=== PATIENT | female | born 1970 | race Caucasian/White ===

== ENCOUNTER 2017-08-20 14:34 | Inpatient (IN) ==
[2017-08-20] MEDS ORDERED: Ketorolac Inj 30 MG/ML (IVP) Vial IV.PUSH ONE (15:19)
[2017-08-20] MEDS ORDERED: Sod Chloride 0.9% Inj 1,000 ML IV.SIG ONE (15:19)
[2017-08-20 15:51] LABS: Baso % (Auto) 0.2 % (0.0-2.0); Eos % (Auto) 0.2 % (0.0-4.0); Hematocrit 38.5 % (35.0-46.0); Hemoglobin 13.1 gm/dL (11.6-15.3); Lymph # (Auto) 0.4 th/mm3 (1.0-4.8); Lymph % (Auto) 3.2 % (9.0-44.0); Mean Corpuscular Hemoglobin 29.2 pg (27.0-34.0); Mean Corpuscular Volume 85.8 fL (80.0-100.0); Mean Platelet Volume 9.1 fL (7.0-11.0); Mono # (Auto) 0.4 th/mm3 (0.0-0.9); Mono % (Auto) 3.7 % (0.0-8.0); Neut # (Auto) 10.3 th/mm3 (1.8-7.7); Neut % (Auto) 92.7 % (16.0-70.0); Platelet Count 306 th/mm3 (150-450); Red Blood Count 4.48 mil/mm3 (4.00-5.30); Red Cell Distribution Width 13.4 % (11.6-17.2); White Blood Count 11.1 th/mm3 (4.0-11.0)
[2017-08-20 16:00] LABS: Chloride 97 meq/L (98-107); Potassium 3.2 meq/L (3.5-5.1); Sodium 131 meq/L (136-145)
[2017-08-20 16:01] LABS: Bilirubin,Urine Negative (Negative); Clarity,Urine Slightly Cloudy (Clear); Color,Urine Yellow (Yellw/Straw); Glucose,Urine (UA) Negative (Negative); Leukocyte Esterase,Urine Trace (Negative); Nitrite,Urine Negative (Negative); PH,Urine 5.5 (5.0-8.5); Urobilinogen,Urine 0.2 mg/dL (Less than 2)
[2017-08-20 16:04] LABS: Anion Gap 11 meq/L (5-15); Calcium 8.8 mg/dL (8.5-10.1); Carbon Dioxide 23.4 meq/L (21.0-32.0); Glucose,Random 116 mg/dL (74-106); Lipase 63 U/L (73-393)
[2017-08-20 16:05] LABS: Activated Partial Thrombo Time 27.3 sec (24.3-30.1); Blood Urea Nitrogen 10 mg/dL (7-18); Prothrombin Time 10.2 sec (9.8-11.6)
[2017-08-20 16:05] LABS: Bacteria,Urine Occasional /hpf
[2017-08-20 16:07] LABS: Alanine Aminotransferase 12 U/L (10-53); Aspartate Aminotransferase 11 U/L (15-37); Glomerular Filtration Rate 83 mL/min (>89)
[2017-08-20 16:09] LABS: Total Protein 7.4 g/dL (6.4-8.2)
[2017-08-20 16:10] LABS: Alkaline Phosphatase 64 U/L (45-117)
--- NOTE | 2017-08-20 16:31 | ED ---
HPI General Chief complaint: Abdominal Pain Stated complaint: Abd Pain x 3 days/Vomiting x today Time Seen by Provider: 08/20/17 15:09 Source: patient Mode of arrival: ambulatory Limitations: no limitations History of Present Illness HPI narrative: Patient is a 47 year old female who comes in complaining of abdominal pain. She says it started 4 days ago. She says that she felt better yesterday, but it got worse today. She says the pain is around the outside of her abdomen and she has some pain to both flanks. She says she thought she may have been constipated, so she tried taking a few laxatives, but this did not relieve her symptoms. She reports today she started vomiting, so her coworkers told her to come in. She denies fever or chills. She says for the past month, she has had urinary frequency and urgency. She says she has never had pain like this before. Severity is mild to moderate. Onset (ago): day(s) (4) Radiation: back (flanks) Relieving factors: none Related Data Allergies Allergy/AdvReac Type Severity Reaction Status Date / Time No Known Allergies Allergy Unverified 08/20/17 14:50 Review of Systems Except as stated in HPI: all other systems reviewed are negative Constitutional Denies chills and Denies fever(s) Cardiovascular Denies chest pain Respiratory Denies cough and Denies dyspnea on exertion Gastrointestinal Reports abdominal pain, Reports nausea and Reports vomiting Genitourinary Reports flank pain and Reports urinary urgency Musculoskeletal Denies myalgias and Denies arthralgias Integumentary/Breasts Denies change in pigmentation and Denies rash Neurologic Denies focal weakness [facility] Medical History Medical History Patient denies medical problems (Acute) Surgical History Surgical History H/O tubal ligation (Acute) Social History Social History Substance History: No History of Abuse Second Hand Smoke Exposure: Yes Smoking Status: Former smoker How Often Do You Have a Drink Containing Alcohol: 4 or more times a week Recent Travel in [facility] within the Last 8 Weeks: No Recent Out of Country Travel within the Last 8 Weeks: No Immunization History Tetanus Immunization: >5 Years Hx Influenza Vaccine This Season: No Exam Narrative Exam Narrative: GENERAL: Awake and alert, in no acute distress. SKIN: Focused skin assessment warm/dry. No wounds or signs of infection. HEAD: Atraumatic. Normocephalic. EYES: Pupils equal and round. No scleral icterus. ENT: Mucous membranes pink and moist. NECK: Trachea midline. No JVD. CARDIOVASCULAR: Regular rate and rhythm. No murmur appreciated. RESPIRATORY: No accessory muscle use. Clear to auscultation. Breath sounds equal bilaterally. GASTROINTESTINAL: Abdomen soft, nondistended. Tender to palpation across the lower abdomen, no rebound or guarding. Bilateral CVA tenderness. MUSCULOSKELETAL: No obvious deformities. No clubbing. No cyanosis. No edema. NEUROLOGICAL: Awake and alert. No obvious cranial nerve deficits. Motor grossly within normal limits. Normal speech. PSYCHIATRIC: Appropriate mood and affect; insight and judgment normal. Course Hospital Course: IV established, labs sent. Patient given IV fluids, Toradol. CT abdomen and pelvis performed. Reevaluation(s) Reevaluation #1: Patient still having pain, mild improvement after Toradol. She is informed of the results, and agreeable with admission. Morphine ordered. Cipro and Flagyl ordered. Time: 17:20 Initial Documented Vital Signs Temperature 98.6 F 08/20/17 14:45 Pulse Rate 109 H 08/20/17 14:45 Respiratory Rate 16 08/20/17 14:45 Blood Pressure 139/100 H 08/20/17 14:45 Pulse Oximetry 97 08/20/17 14:45 Last Documented Vital Signs Temperature 98.6 F 08/20/17 14:45 Pulse Rate 86 08/20/17 17:45 Respiratory Rate 16 08/20/17 14:45 Blood Pressure 108/66 08/20/17 17:45 Pulse Oximetry 97 08/20/17 14:45 Medical Decision Making [facility] Narrative Medical decision making narrative: Patient is a 47-year-old female who comes in complaining of abdominal pain. Exam shows tenderness across the lower abdomen. IV established, labs sent. Labs show a white blood cell count of 11.1. Given IV fluids, Toradol, Zofran. CT abdomen pelvis performed shows diverticulitis with perforation. Given Cipro and Flagyl. Morphine ordered. I spoke with Dr. Hahn of general surgery, he would like the patient transferred to the main hospital for further management. She will be admitted to medicine. Differential Diagnosis Differential Diagnosis: UTI versus colitis versus diverticulitis versus appendicitis Medical Records Medical records reviewed: Yes I reviewed the patient's medical records. Lab Data Result diagrams: 08/20/17 15:39 08/20/17 15:39 Lab Results 08/20/17 08/20/17 08/20/17 Range/Units 15:39 15:39 15:39 CBC w Diff Auto diff final WBC 11.1 H (4.0-11.0) th/mm3 RBC 4.48 (4.00-5.30) mil/mm3 Hgb 13.1 (11.6-15.3) gm/dL Hct 38.5 (35.0-46.0) % MCV 85.8 (80.0-100.0) fL MCH 29.2 (27.0-34.0) pg MCHC 34.0 (32.0-36.0) % RDW 13.4 (11.6-17.2) % Plt Count 306 (150-450) th/mm3 MPV 9.1 (7.0-11.0) fL Neut % (Auto) 92.7 H (16.0-70.0) % Lymph % (Auto) 3.2 L (9.0-44.0) % Gilpin % (Auto) 3.7 (0.0-8.0) % Eos % (Auto) 0.2 (0.0-4.0) % Baso % (Auto) 0.2 (0.0-2.0) % Neut # (Auto) 10.3 H (1.8-7.7) th/mm3 Lymph # (Auto) 0.4 L (1.0-4.8) th/mm3 Gilpin # (Auto) 0.4 (0.0-0.9) th/mm3 Eos # (Auto) 0.0 (0.0-0.4) th/mm3 Baso # (Auto) 0.0 (0.0-0.2) th/mm3 WBC Differential . Differential Comment . PT 10.2 (9.8-11.6) sec INR 1.0 Ratio APTT 27.3 (24.3-30.1) sec Sodium 131 L (136-145) meq/L Potassium 3.2 L (3.5-5.1) meq/L Chloride 97 L (98-107) meq/L Carbon Dioxide 23.4 (21.0-32.0) meq/L Anion Gap 11 (5-15) meq/L BUN 10 (7-18) mg/dL Creatinine 0.75 (0.50-1.00) mg/dL Estimated GFR 83 L (>89) mL/min Random Glucose 116 H (74-106) mg/dL Calcium 8.8 (8.5-10.1) mg/dL Total Bilirubin 0.9 (0.2-1.0) mg/dL AST 11 L (15-37) U/L ALT 12 (10-53) U/L Alkaline Phosphatase 64 (45-117) U/L Troponin I Less than 0.02 L (0.02-0.05) ng/mL Total Protein 7.4 (6.4-8.2) g/dL Albumin 3.0 L (3.4-5.0) g/dL Lipase 63 L (73-393) U/L Urine Color (Yellw/Straw) Urine Clarity (Clear) Urine pH (5.0-8.5) Ur Specific Rison (1.002-1.035) Urine Protein (Neg-Trace) mg/dL Urine Glucose (UA) (Negative) mg/dL Urine Ketones (Negative) mg/dL Urine Occult Blood (Negative) Urine Nitrate (Negative) Urine Bilirubin (Negative) Urine Urobilinogen (Less than 2) mg/dL Ur Leukocyte Esterase (Negative) Urine RBC (0-3) /hpf Urine WBC (0-5) /hpf Ur Squamous Epith Cells (0-5) /hpf Urine Bacteria (None) /hpf Micro UA Comment Urine Culture Comments 08/20/17 Range/Units 15:45 CBC w Diff WBC (4.0-11.0) th/mm3 RBC (4.00-5.30) mil/mm3 Hgb (11.6-15.3) gm/dL Hct (35.0-46.0) % MCV (80.0-100.0) fL MCH (27.0-34.0) pg MCHC (32.0-36.0) % RDW (11.6-17.2) % Plt Count (150-450) th/mm3 MPV (7.0-11.0) fL Neut % (Auto) (16.0-70.0) % Lymph % (Auto) (9.0-44.0) % Gilpin % (Auto) (0.0-8.0) % Eos % (Auto) (0.0-4.0) % Baso % (Auto) (0.0-2.0) % Neut # (Auto) (1.8-7.7) th/mm3 Lymph # (Auto) (1.0-4.8) th/mm3 Gilpin # (Auto) (0.0-0.9) th/mm3 Eos # (Auto) (0.0-0.4) th/mm3 Baso # (Auto) (0.0-0.2) th/mm3 WBC Differential Differential Comment PT (9.8-11.6) sec INR Ratio APTT (24.3-30.1) sec Sodium (136-145) meq/L Potassium (3.5-5.1) meq/L Chloride (98-107) meq/L Carbon Dioxide (21.0-32.0) meq/L Anion Gap (5-15) meq/L BUN (7-18) mg/dL Creatinine (0.50-1.00) mg/dL Estimated GFR (>89) mL/min Random Glucose (74-106) mg/dL Calcium (8.5-10.1) mg/dL Total Bilirubin (0.2-1.0) mg/dL AST (15-37) U/L ALT (10-53) U/L Alkaline Phosphatase (45-117) U/L Troponin I (0.02-0.05) ng/mL Total Protein (6.4-8.2) g/dL Albumin (3.4-5.0) g/dL Lipase (73-393) U/L Urine Color Yellow (Yellw/Straw) Urine Clarity Slightly cloudy (Clear) Urine pH 5.5 (5.0-8.5) Ur Specific Rison 1.010 (1.002-1.035) Urine Protein 100 H (Neg-Trace) mg/dL Urine Glucose (UA) Negative (Negative) mg/dL Urine Ketones 80 or greater (Negative) mg/dL Urine Occult Blood Small H (Negative) Urine Nitrate Negative (Negative) Urine Bilirubin Negative (Negative) Urine Urobilinogen 0.2 (Less than 2) mg/dL Ur Leukocyte Esterase Trace H (Negative) Urine RBC 4-15 H (0-3) /hpf Urine WBC 5-8 H (0-5) /hpf Ur Squamous Epith Cells 6-10 H (0-5) /hpf Urine Bacteria Occasional H (None) /hpf Micro UA Comment Culture not ind Urine Culture Comments Culture not ind Imaging Data Radiologist's impression: ITS Impressions Abdomen/Pelvis CT 08/20/17 15:19 CONCLUSION: 1. Findings most consistent with perforated proximal sigmoid diverticulitis with small foci of free intraperitoneal air. Trace free fluid in the pelvis without abscess at this time. 2. Diffusely dilated fluid-filled small bowel loops throughout the abdomen which may reflect postinflammatory adynamic ileus. No evidence for small bowel infarction. 3. Prominent endometrium with 2.9 cm myometrial mass likely reflecting a fibroid. 4. Probable 2.3 cm right ovarian cyst. Discharge Plan Discharge Disposition Patient Disposition: 30 Still Patient Discharge Condition Condition: Stable Discharge Details Discharge Problem: Diverticulitis Physicians Team ED Provider: Elena White Primary Care Provider: Primary Care Shamika Mcintyre Attending Provider: Lisa Soto Other Providers: Augutsine Hahn Discharge Interventions Interventions: ED Discharge Assessment Last Done: 08/20/17 19:18 Vital Signs Last Done: 08/20/17 19:18 Status ED Status: Left Department Discharge Information Discharge Date/Time: 08/20/17 19:21
--- NOTE | 2017-08-20 16:43 | CT ---
EXAM DATE: 08/20/2017 4:30 PM EDT AGE/SEX: 47 years / Female INDICATIONS: Abdominal pain for four days. CLINICAL DATA: This is the patient's initial encounter. Patient reports that signs and symptoms have been present for 4 - 6 days and indicates a pain score of 4/10. MEDICAL/SURGICAL HISTORY: None. Tubal ligation. ORAL CONTRAST: No oral contrast ingested. RADIATION DOSE: 8.05 CTDI (mGy) COMPARISON: No prior exams available for comparison. TECHNIQUE: Multiple contiguous axial images were obtained through the abdomen and pelvis following b olus infusion of 85 ml Omnipaque 350 (iohexol) nonionic water-soluble contrast as a single exam dos e. No oral contrast ingested. Using automated exposure control and adjustment of the mA and/or kV ac cording to patient size, radiation dose was kept as low as reasonably achievable to obtain optimal di agnostic quality images. DICOM format image data is available electronically for review and comparis on. FINDINGS: LOWER LUNGS: The visualized lower lungs are clear. LIVER: 11 mm fat density lesion which appears to project over the dome of the liver, likely extra he patic. Liver otherwise demonstrates normal enhancement without intrahepatic ductal dilatation. SPLEEN: Homogeneous density without enlargement. PANCREAS: Unremarkable without mass or calcification. KIDNEYS: Kidneys demonstrate symmetrical enhancement and are symmetrical in size without evidence fo r radiopaque renal calculi or hydronephrosis. ADRENAL GLANDS: Unremarkable. AORTA: Belen-aneurysmal. BOWEL/MESENTERY: Moderate sigmoid diverticulosis with perisigmoid inflammatory change in the very pr oximal sigmoid. Stomach is decompressed. Multiple loops of distended fluid-filled small bowel through out the abdomen. There are multiple small foci of free intraperitoneal air. Trace free fluid in the d eep pelvis. No definite focal fluid collections. ABDOMINAL WALL: Intact. RETROPERITONEUM: No evidence of adenopathy in the retrocrural, para-aortic, or deep pelvic regions. BLADDER: Contours are smooth. REPRODUCTIVE: Prominent endometrium with 2.9 cm low-density myometrial mass likely reflecting a fibr oid. 2.3 cm cyst in the right adnexa posteriorly, likely ovarian in etiology. BONY STRUCTURES: Unremarkable. CONCLUSION: 1. Findings most consistent with perforated proximal sigmoid diverticulitis with small foci of free intraperitoneal air. Trace free fluid in the pelvis without abscess at this time. 2. Diffusely dilated fluid-filled small bowel loops throughout the abdomen which may reflect postinf lammatory adynamic ileus. No evidence for small bowel infarction. 3. Prominent endometrium with 2.9 cm myometrial mass likely reflecting a fibroid. 4. Probable 2.3 cm right ovarian cyst. Electronically signed by: Guerrero Treadwell MD 08/20/2017 4:42 PM EDT
[2017-08-20] MEDS ORDERED: Ciprofloxacin 400 MG/200 ML 400 MG/200 ML PIGGYBACK IV.SIG ONE (16:49)
[2017-08-20] MEDS ORDERED: Morphine Inj 4 MG/ML Vial IV.PUSH ONE (17:03)
[2017-08-20] MEDS ORDERED: Morphine Sulfate Inj 2 MG/ML Vial IV.PUSH PRN (17:59)
--- NOTE | 2017-08-21 00:26 | MB ---
cc: Augustine Hahn MD DATE: 08/20/2017 CHIEF COMPLAINT: Abdominal pain, diverticulitis. HISTORY OF PRESENT ILLNESS: The patient is a 47-year-old female who presents with acute onset of abdominal pain. She states the pain started 4 days ago and continued to get worse. She states the pain was severe and significant and was 9/10, currently is 7/10 with IV pain medication. She states the pain was worse with movement, better with lying still. She was at work and states the pain is associated with nausea and vomiting and then decided to come to the emergency department at [facility] for further evaluation, including a laboratory workup with a leukocytosis of 11.[address] scan showing perforation of diverticulitis without evidence of abscess, but small intraperitoneal free air. She denies any fevers or chills and denies any previous episodes. She has not had a colonoscopy. PAST MEDICAL HISTORY: The patient has no medical problems. PAST SURGICAL HISTORY: Tubal ligation. SOCIAL HISTORY: Denies smoking. Occasional ETOH. IVDA: Denies. ALLERGIES: NO KNOWN DRUG ALLERGIES. MEDICATIONS: See electronic medical record. FAMILY HISTORY: Denies diabetes or hypertension. REVIEW OF SYSTEMS: GENERAL: Denies fevers or chills. HEENT: Denies eye pain, ear pain. NECK: Denies swelling or pain. LUNGS: Denies cough or wheeze. HEART: Denies palpitations or chest pain. ABDOMEN: Complains of nausea, vomiting, abdominal pain. GENITOURINARY: Denies dysuria or hematuria. ENDOCRINE: Denies polyuria or polydipsia. INTEGUMENT: Denies mass or lesions. PSYCHIATRIC: Denies change in mood or affect. PHYSICAL EXAMINATION: GENERAL: No acute distress. VITAL SIGNS: Temperature 98.6, pulse 109, respirations 16, blood pressure 139/100, saturation 97 percent. HEENT: Pupils equal, round, reactive. NECK: Supple. Trachea midline. LUNGS: Clear to auscultation, bilateral expansion. HEART: S1, S2 regular. ABDOMEN: Soft. Positive tenderness to palpation in all 4 quadrants with minimal guarding, no rebound, no peritoneal signs. EXTREMITIES: Warm and well perfused. NEUROLOGIC: GCS of 15, 5/5 motor in all extremities. PSYCHIATRIC: Appropriate mood, appropriate judgment. LABORATORY AND DIAGNOSTIC DATA: WBC 11.1, hemoglobin 13.1, hematocrit 38.5, platelets 309. INR 1. Sodium 131, potassium 3.2, chloride 97, BUN 10, creatinine 0.7, AST 11, ALT 12, alkaline phosphatase of 64, lipase 63. CT scan reviewed by myself showing acute diverticulitis with inflammation around sigmoid colon diverticula, multiple very small specks of intraperitoneal air. ASSESSMENT: The patient is a 47-year-old female with perforated diverticulitis, no abscess, does have free air intraperitoneal with abdominal pain, no peritoneal signs. PLAN: After full clinical, radiologic and laboratory workup, the patient with the above main issues including a perforated diverticulitis. At this point, my concern is the patient is likely to have a microperforation. It does not appear septic, but she does have a leukocytosis and some moderate abdominal pain. I recommend IV antibiotics, pain control, bowel rest, abdominal exams. Discussed with the patient in detail, and sister at bedside, regarding diverticulitis and possible treatments. At this point, again, we will observe. Discussed if any clinical deterioration, the patient would need to go to the operating room for a colostomy, but if able to treat nonoperatively, we will attempt this and consider operative intervention in the future. MD LATASHA Bryant/ABIGAIL , 11:30 PM , 12:24 AM MTDD
[2017-08-21] MEDS: Ciprofloxacin 400 MG/200 ML 400 MG/200 ML PIGGYBACK IV.SIG SCH ×2 (06:09→17:36)
[2017-08-21] MEDS ORDERED: Dextrose 50% in Water 50 ML Vial IV.PUSH PRN (07:30)
[2017-08-21] MEDS ORDERED: Bisacodyl 10 MG Supp RECTAL PRN (07:34)
[2017-08-21] MEDS ORDERED: Naloxone Inj 0.4 MG/ML Vial IV.PUSH PRN (07:39)
--- NOTE | 2017-08-21 10:37 | ECG ---
Date Performed: 08/20/2017 Time Performed: 15:29:47 PTAGE: 47 years EKG: Sinus rhythm NORMAL ECG PREVIOUS TRACING : 06/18/2008 17.39 Compared to previous tracing, heart rate has increased. DOCTOR: Nilton Goldberg Interpretating Date/Time 08/21/2017 10:35:27
[2017-08-21 11:20] LABS: Baso % (Auto) 0.5 % (0.0-2.0); Eos # (Auto) 0.1 th/mm3 (0.0-0.4); Eos % (Auto) 1.5 % (0.0-4.0); Hematocrit 34.5 % (35.0-46.0); Hemoglobin 11.4 gm/dL (11.6-15.3); Lymph # (Auto) 0.7 th/mm3 (1.0-4.8); Lymph % (Auto) 9.8 % (9.0-44.0); Mean Corpuscular HGB Conc 33.1 % (32.0-36.0); Mean Corpuscular Hemoglobin 28.5 pg (27.0-34.0); Mean Corpuscular Volume 86.1 fL (80.0-100.0); Mean Platelet Volume 8.7 fL (7.0-11.0); Mono # (Auto) 0.6 th/mm3 (0.0-0.9); Mono % (Auto) 8.2 % (0.0-8.0); Neut # (Auto) 5.9 th/mm3 (1.8-7.7); Platelet Count 264 th/mm3 (150-450); Red Cell Distribution Width 14.4 % (11.6-17.2); White Blood Count 7.4 th/mm3 (4.0-11.0)
--- NOTE | 2017-08-21 11:23 | P.PNGS ---
Subjective Patient reports: feels better, pain is less, afebrile Physical Exam Vital signs: Vital Signs 08/20/17 14:45 08/20/17 17:45 08/20/17 19:18 Temperature 98.6 F Pulse Rate 109 H 86 93 H Respiratory Rate 16 16 Blood Pressure 139/100 H 108/66 118/71 Pulse Oximetry 97 96 08/20/17 20:00 08/21/17 00:00 08/21/17 04:00 Temperature 98.6 F 98.9 F 98.4 F Pulse Rate 90 86 84 Respiratory Rate 16 16 16 Blood Pressure 112/66 109/56 L 108/62 Pulse Oximetry 98 100 97 Intake & Output 08/20/17 08/21/17 08/21/17 18:59 06:59 18:59 Intake Total 1200 / 1200 1200 / 1200 Balance 1200 / 1200 1200 / 1200 Weight 65.9 kg 66.8 kg Intake: IV 1200 / 1200 1100 / 1100 NS + KCl 20 mEq Inj 1,000 ML @ 1000 / 1000 125 mls/hr IV.CONT .Q8H SHASHANK Rx# :[id number] Cipro 400 MG/200 ML Inj 400 mg 200 / 200 In 200 ml @ 200 mls/hr IV.SIG ONCE ONE Rx#:[id number] NS Inj 1,000 ML @ Wide Open IV. 1000 / 1000 SIG BOLUS ONE Rx#:[id number] Flagyl 500 MG Inj 100 ML @ 100 100 / 100 mls/hr IV.SIG Q8H SHASHANK Rx#: [id number] Oral 100 / 100 Other: # Voids 4 Date of Last Bowel Movement 08/19/17 Weight On Admission 63.503 kg - Routine Respiratory Exam Present: CTA bilaterally - Routine Cardiovascular Exam Present: RRR - Routine Abdominal Exam Present: soft, normoactive bowel sounds, tenderness Assessment and Plan - Assessment (1) Diverticulitis Code(s): K57.92 - Diverticulitis of intestine, part unspecified, without perforation or abscess without bleeding Status: Acute - Plan overall feels much better continue IV abx 24-4 hours then switch to po clear liquid diet
[2017-08-21 11:48] LABS: Anion Gap 11 meq/L (5-15); Blood Urea Nitrogen 5 mg/dL (7-18); Carbon Dioxide 20.5 meq/L (21.0-32.0); Chloride 109 meq/L (98-107); Glomerular Filtration Rate Greater Than 89 mL/min (>89); Glucose,Random 80 mg/dL (74-106); Potassium 3.6 meq/L (3.5-5.1); Sodium 140 meq/L (136-145)
[2017-08-21] MEDS: Pantoprazole Inj 40 MG Vial IV.PUSH SCH (13:20)
[2017-08-21] MEDS: Morphine Inj 4 MG/ML Vial IV.PUSH PRN (13:53)
--- NOTE | 2017-08-21 18:44 | P.HP ---
History of Present Illness Primary Care Physician: No Primary Care Physician History of Present Illness: This is a 47-year-old female with no significant past medical history. She presented to the emergency room complaining of constant generalized abdominal pain which started 4 days prior to admission. She thought it was related to gas and constipation and took some [id number] medications to no relief. On the day of admission, she developed chills, nausea and vomiting. Denies UTI symptoms. Abdominal CT shows perforated sigmoid diverticulitis with free air and was then advice admission. At this time, patient feels better especially with pain. She feels her abdomen is firm but denies distention. She has not passed gas or had a bowel movement. All other systems reviewed negative - Diagnosis (1) Perforation of sigmoid colon due to diverticulitis Inpatient Certification: I certify that the inpatient services were ordered in accordance with Medicare regulations governing the order. This includes certification that hospital inpatient services are reasonable and necessary and in the case of services not specified as inpatient-only under 42 CFR 419.22(n), that they are appropriately provided as inpatient services in accordance to with the 2-midnight benchmark under 43 CFR 412.3(e) Review of Systems All other systems reviewed negative except as stated in HPI PMFSH - History History Provided By: Patient - Medical History Medical History: Medical History (Last Reviewed 08/20/17 @ 16:28 by Elnea White MD) Patient denies medical problems - Surgical History Surgical History: Surgical History (Last Reviewed 08/20/17 @ 23:32 by Tyree Ames RN) H/O tubal ligation - Tobacco History Second Hand Smoke Exposure: No Tobacco Use In Past 30 Days: No Smoking Status: Former smoker - Alcohol History How Often Do You Have a Drink Containing Alcohol: 2 to 3 times a week - Substance Use History Substance History: No History of Abuse - Travel History Recent Travel in the [place] Within the Last 8 Weeks: No Recent Travel Out of the Country Within the Last 8 Weeks: No - Immunization History Tetanus Immunization: Unsure Hx Influenza Vaccine This Season: No Medications and Allergies Active Medications: Active Medications Bisacodyl (Dulcolax Supp) 10 mg RECTAL DAILY PRN PRN Reason: SEVERE CONSITIPATION Dextrose (D50w Vial) 50 ml IV.PUSH UNSCH PRN PRN Reason: PER HYPOGLYCEMIA PROTOCOL Glucagon (Glucagon Inj) 1 mg OTHER PRN PRN PRN Reason: for Hypoglycemia Protocol Ciprofloxacin/Dextrose (Cipro 400 Mg/200 Ml Inj) 400 mg in 200 mls @ 200 mls/ hr IV.SIG Q12H SHASHANK Last Admin: 08/21/17 17:36 Dose: 200 mls/hr Potassium Chloride/Sodium Chloride (Ns + Kcl 20 Meq Inj) 1,000 mls @ 125 mls/ hr IV.CONT .Q8H SHASHANK Last Admin: 08/21/17 13:20 Dose: 125 mls/hr Metronidazole/Sodium Chloride (Flagyl 500 Mg Inj) 100 mls @ 100 mls/hr IV.SIG Q8H SHASHANK Last Admin: 08/21/17 16:29 Dose: 100 mls/hr Morphine Sulfate (Morphine Inj) 2 mg IV.PUSH Q4H PRN PRN Reason: ABDOMINAL PAIN Last Admin: 08/21/17 13:53 Dose: 2 mg Naloxone HCl (Narcan Inj) 0.4 mg IV.PUSH UNSCH PRN PRN Reason: SEE LABEL COMMENTS Ondansetron HCl (Zofran Odt) 4 mg PO Q6H PRN PRN Reason: NAUSEA OR VOMITING Pantoprazole Sodium (Protonix Inj) 40 mg IV.PUSH Q24H [facility] Last Admin: 08/21/17 13:20 Dose: 40 mg Sodium Chloride (Ns Flush) 2 ml IV.FLUSH PRN PRN PRN Reason: FLUSH AFTER USING IV ACCESS Allergies Allergy/AdvReac Type Severity Reaction Status Date / Time No Known Allergies Allergy Unverified 08/20/17 14:50 Exam Vital signs: Vital Signs 08/20/17 19:18 08/20/17 20:00 08/21/17 00:00 Temperature 98.6 F 98.9 F Pulse Rate 93 H 90 86 Respiratory Rate 16 16 16 Blood Pressure 118/71 112/66 109/56 L Pulse Oximetry 96 98 100 08/21/17 04:00 08/21/17 08:00 08/21/17 12:00 Temperature 98.4 F 98.4 F 100.1 F H Pulse Rate 84 86 80 Respiratory Rate 16 16 16 Blood Pressure 108/62 110/62 76/76 L Pulse Oximetry 97 98 98 Intake & Output 08/20/17 08/21/17 08/21/17 18:59 06:59 18:59 Intake Total 1200 / 1200 1200 / 1200 1300 / 1300 Balance 1200 / 1200 1200 / 1200 1300 / 1300 Weight 65.9 kg 66.8 kg Intake: IV 1200 / 1200 1100 / 1100 1300 / 1300 NS + KCl 20 mEq Inj 1,000 ML @ 1000 / 1000 1000 / 1000 125 mls/hr IV.CONT .Q8H SH[facility]ANK Rx# :[id number] Cipro 400 MG/200 ML Inj 400 mg 200 / 200 200 / 200 In 200 ml @ 200 mls/hr IV.SIG Q12H SH[facility]ANK Rx#:[id number] NS Inj 1,000 ML @ Wide Open IV. 1000 / 1000 SIG BOLUS ONE Rx#:[id number] Flagyl 500 MG Inj 100 ML @ 100 100 / 100 100 / 100 mls/hr IV.SIG Q8H SHASHANK Rx#: [id number] Oral 100 / 100 Other: # Voids 4 Date of Last Bowel Movement 08/19/17 Weight On Admission 63.503 kg Narrative: GENERAL: Well-developed and well-nourished in no distress SKIN: Warm and dry. HEAD: Atraumatic. Normocephalic. EYES: Pupils equal and round. No scleral icterus. No injection or drainage. ENT: No nasal bleeding or discharge. Mucous membranes pink and moist. NECK: Trachea midline. No JVD. CARDIOVASCULAR: Regular rate and rhythm. RESPIRATORY: No accessory muscle use. Clear to auscultation. Breath sounds equal bilaterally. GASTROINTESTINAL: Abdomen soft, with diffuse tenderness normoactive bowel sounds MUSCULOSKELETAL: Extremities without clubbing, cyanosis, or edema. No obvious deformities. NEUROLOGICAL: Awake and alert. No obvious cranial nerve deficits. Motor grossly within normal limits. Five out of 5 muscle strength in the arms and legs. Normal speech. PSYCHIATRIC: Appropriate mood and affect; insight and judgment normal. Results - Labs CBC & Chem 7: 08/21/17 09:45 08/21/17 09:45 Labs: Laboratory Results - last 24 hr 08/21/17 08/21/17 09:45 09:45 WBC 7.4 RBC 4.00 Hgb 11.4 L Hct 34.5 L MCV 86.1 MCH 28.5 MCHC 33.1 RDW 14.4 Plt Count 264 MPV 8.7 Neut % (Auto) 80.0 H Lymph % (Auto) 9.8 [place] % (Auto) 8.2 H Eos % (Auto) 1.5 Baso % (Auto) 0.5 Neut # (Auto) 5.9 Lymph # (Auto) 0.7 L [place] # (Auto) 0.6 Eos # (Auto) 0.1 Baso # (Auto) 0.0 WBC Differential . Differential Comment Auto diff final Sodium 140 Potassium 3.6 Chloride 109 H D Carbon Dioxide 20.5 L Anion Gap 11 BUN 5 L Creatinine 0.57 Estimated GFR Greater than 89 Random Glucose 80 Calcium 8.0 L D - Imaging ITS Impressions Abdomen/Pelvis CT 08/20/17 15:19 CONCLUSION: 1. Findings most consistent with perforated proximal sigmoid diverticulitis with small foci of free intraperitoneal air. Trace free fluid in the pelvis without abscess at this time. 2. Diffusely dilated fluid-filled small bowel loops throughout the abdomen which may reflect postinflammatory adynamic ileus. No evidence for small bowel infarction. 3. Prominent endometrium with 2.9 cm myometrial mass likely reflecting a fibroid. 4. Probable 2.3 cm right ovarian cyst. Caprini VTE Risk Assessment Caprini VTE Risk Assessment: No/Low Risk (score <= 1) Caprini Risk Assessment Model: Point Value = 1 Point Value = 2 Point Value = 3 Point Value = 5 Age 41-60 Minor surgery BMI > 25 kg/m2 Swollen legs Varicose veins or History of unexplained or recurrent spontaneous Oral contraceptives or hormone replacement Sepsis (< 1 month) Serious lung disease, including pneumonia (< 1 month) Abnormal pulmonary function Acute myocardial infarction Congestive heart failure (< 1 month) History of inflammatory bowel disease Medical patient at bed rest Age 61-74 Arthroscopic surgery Major open surgery (> 45 min) Laparoscopic surgery (> 45 min) Malignancy Confined to bed (> 72 hours) Immobilizing plaster cast Central venous access Age >= 75 History of VTE Family history of VTE Factor V Leiden Prothrombin [id number] Lupus anticoagulant Anticardiolipin antibodies Elevated serum homocysteine Heparin-induced thrombocytopenia Other congenital or acquired thrombophilia Stroke (< 1 month) Elective arthroplasty Hip, pelvis, or leg fracture Acute spinal cord injury (< 1 month) Prophylaxis Regimen: Total Risk Factor Score Risk Level Prophylaxis Regimen 0-1 Low Early ambulation 2 Moderate Order ONE of the following: *Sequential Compression Device (SCD) *Heparin 5000 units SQ BID 3-4 Higher Order ONE of the following medications: *Heparin 5000 units SQ TID *Enoxaparin/Lovenox 40 mg SQ daily (WT < 150 kg, CrCl > 30 mL/min) *Enoxaparin/Lovenox 30 mg SQ daily (WT < 150 kg, CrCl > 10-29 mL/min) *Enoxaparin/Lovenox 30 mg SQ BID (WT < 150 kg, CrCl > 30 mL/min) AND/OR *Sequential Compression Device (SCD) 5 or more Highest Order ONE of the following medications: *Heparin 5000 units SQ TID (Preferred with Epidurals) *Enoxaparin/Lovenox 40 mg SQ daily (WT < 150 kg, CrCl > 30 mL/min) *Enoxaparin/Lovenox 30 mg SQ daily (WT < 150 kg, CrCl > 10-29 mL/min) *Enoxaparin/Lovenox 30 mg SQ BID (WT < 150 kg, CrCl > 30 mL/min) AND *Sequential Compression Device (SCD) Assessment and Plan - Assessment (1) Perforation of sigmoid colon due to diverticulitis Code(s): K57.20 - Diverticulitis of large intestine with perforation and abscess without bleeding Status: Acute - Plan This is a 47-year-old female who presented to the emergency room complaining of abdominal pain, constipation, chills, nausea and vomiting. Abdominal CT shows perforated sigmoid diverticulitis Perforated sigmoid diverticulitis with free air. Clinically improving continue IV antibiotics with ciprofloxacin, Flagyl and pain management with IV morphine. General surgery has started liquid diet will continue IV hydration, GI prophylaxis and hypoglycemia protocol Ileus. As above. Incidental findings of fibroid uterus and right ovarian cyst. Outpatient follow -up DVT prophylaxis with SCD and early ambulation Discharge Planning: pt and SO
[2017-08-22] MEDS: Morphine Inj 4 MG/ML Vial IV.PUSH PRN (00:48)
[2017-08-22] MEDS: Ciprofloxacin 400 MG/200 ML 400 MG/200 ML PIGGYBACK IV.SIG SCH ×2 (07:49→17:45)
[2017-08-22 08:31] LABS: Baso % (Auto) 0.2 % (0.0-2.0); Eos # (Auto) 0.1 th/mm3 (0.0-0.4); Eos % (Auto) 0.4 % (0.0-4.0); Hematocrit 32.1 % (35.0-46.0); Hemoglobin 10.7 gm/dL (11.6-15.3); Lymph # (Auto) 0.6 th/mm3 (1.0-4.8); Lymph % (Auto) 5.1 % (9.0-44.0); Mean Corpuscular HGB Conc 33.4 % (32.0-36.0); Mean Corpuscular Hemoglobin 28.3 pg (27.0-34.0); Mean Corpuscular Volume 84.9 fL (80.0-100.0); Mean Platelet Volume 8.1 fL (7.0-11.0); Mono # (Auto) 0.8 th/mm3 (0.0-0.9); Mono % (Auto) 7.6 % (0.0-8.0); Neut # (Auto) 9.6 th/mm3 (1.8-7.7); Neut % (Auto) 86.7 % (16.0-70.0); Platelet Count 297 th/mm3 (150-450); Red Blood Count 3.78 mil/mm3 (4.00-5.30); Red Cell Distribution Width 14.6 % (11.6-17.2); White Blood Count 11.1 th/mm3 (4.0-11.0)
[2017-08-22 09:02] LABS: Anion Gap 13 meq/L (5-15); Blood Urea Nitrogen 3 mg/dL (7-18); Calcium 7.8 mg/dL (8.5-10.1); Carbon Dioxide 17.6 meq/L (21.0-32.0); Chloride 108 meq/L (98-107); Glomerular Filtration Rate Greater Than 89 mL/min (>89); Glucose,Random 112 mg/dL (74-106); Potassium 3.3 meq/L (3.5-5.1); Sodium 139 meq/L (136-145)
[2017-08-22] MEDS: Pantoprazole Inj 40 MG Vial IV.PUSH SCH (10:07)
--- NOTE | 2017-08-22 11:18 | P.PNGS ---
Subjective Patient reports: feels better (Patient still feels a little distended and firm in the abdomen. She still has lower abdominal tenderness. She feels better than she did when she arrived. She had small diarrheal bowel movement. She passed some flatus.), flatus, bowel movement, diarrhea Physical Exam Vital signs: Vital Signs 08/21/17 12:00 08/21/17 20:00 08/21/17 20:05 Temperature 100.1 F H 99.5 F Pulse Rate 80 82 Respiratory Rate 16 16 Blood Pressure 76/76 L 123/73 Pulse Oximetry 98 98 98 08/22/17 00:39 08/22/17 04:00 Temperature 98.8 F 99.3 F Pulse Rate 84 96 H Respiratory Rate 18 18 Blood Pressure 121/70 108/58 L Pulse Oximetry 97 97 Intake & Output 08/21/17 08/22/17 08/22/17 18:59 06:59 18:59 Intake Total 1600 / 1600 100 / 100 Balance 1600 / 1600 100 / 100 Weight 67.2 kg Intake: IV 1600 / 1600 100 / 100 NS + KCl 20 mEq Inj 1,000 ML @ 1000 / 1000 125 mls/hr IV.CONT .Q8H SHASHANK Rx# :[id number] Cipro 400 MG/200 ML Inj 400 mg 400 / 400 In 200 ml @ 200 mls/hr IV.SIG Q12H SHASHANK Rx#:[id number] Flagyl 500 MG Inj 100 ML @ 100 200 / 200 100 / 100 mls/hr IV.SIG Q8H SHASHANK Rx#: [id number] Other: # Voids 3 Narrative: Her abdomen is relatively soft. There is some tenderness in the suprapubic area and left lower quadrant without rebound or guarding. Her extremities are nonedematous. She appears overall fairly comfortable. Assessment and Plan - Assessment (1) Diverticulitis Code(s): K57.92 - Diverticulitis of intestine, part unspecified, without perforation or abscess without bleeding Status: Acute - Plan Continue IV antibiotics. Patient desires something more than clear liquids and I have ordered full liquid diet. CBC is ordered for tomorrow morning. Discussed Condition With: Patient at bedside
[2017-08-22] MEDS ORDERED: Potassium Chloride 10 MEQ ER Capsule PO ONE (16:27)
--- NOTE | 2017-08-22 16:33 | P.PN ---
Subjective Interval history: Follow-up diverticulitis. States she is feeling better especially with tenderness but still has firm abdomen. She is passing flatus and stool. Tolerating diet. Physical Exam Vital signs: Vital Signs 08/21/17 20:00 08/21/17 20:05 08/22/17 00:39 Temperature 99.5 F 98.8 F Pulse Rate 82 84 Respiratory Rate 16 18 Blood Pressure 123/73 121/70 Pulse Oximetry 98 98 97 08/22/17 04:00 Temperature 99.3 F Pulse Rate 96 H Respiratory Rate 18 Blood Pressure 108/58 L Pulse Oximetry 97 Intake & Output 08/21/17 08/22/17 08/22/17 18:59 06:59 18:59 Intake Total 1600 / 1600 100 / 100 1400 / 1400 Balance 1600 / 1600 100 / 100 1400 / 1400 Weight 67.2 kg Intake: IV 1600 / 1600 100 / 100 1400 / 1400 NS + KCl 20 mEq Inj 1,000 ML @ 1000 / 1000 1000 / 1000 125 mls/hr IV.CONT .Q8H SHASHANK Rx# :[id number] Cipro 400 MG/200 ML Inj 400 mg 400 / 400 200 / 200 In 200 ml @ 200 mls/hr IV.SIG Q12H SHASHANK Rx#:[id number] Flagyl 500 MG Inj 100 ML @ 100 200 / 200 100 / 100 100 / 100 mls/hr IV.SIG Q8H SHASHANK Rx#: [id number] Other: # Voids 3 Date of Last Bowel Movement 08/22/17 Narrative: GENERAL: Well-developed and well-nourished in no distress SKIN: Warm and dry. CARDIOVASCULAR: Regular rate and rhythm. RESPIRATORY: No accessory muscle use. Clear to auscultation. Breath sounds equal bilaterally. GASTROINTESTINAL: Abdomen soft, with improved diffuse tenderness normoactive bowel sounds MUSCULOSKELETAL: Extremities without clubbing, cyanosis, or edema. No obvious deformities. NEUROLOGICAL: Awake and alert. No obvious cranial nerve deficits. Motor grossly within normal limits. Normal speech. Results - Labs CBC & Chem 7: 08/22/17 07:00 08/22/17 07:00 Laboratory Results - last 24 hr 08/22/17 08/22/17 07:00 07:00 WBC 11.1 H RBC 3.78 L Hgb 10.7 L Hct 32.1 L MCV 84.9 MCH 28.3 MCHC 33.4 RDW 14.6 Plt Count 297 MPV 8.1 Neut % (Auto) 86.7 H Lymph % (Auto) 5.1 L [place] % (Auto) 7.6 Eos % (Auto) 0.4 Baso % (Auto) 0.2 Neut # (Auto) 9.6 H Lymph # (Auto) 0.6 L [place] # (Auto) 0.8 Eos # (Auto) 0.1 Baso # (Auto) 0.0 WBC Differential . Differential Comment Auto diff final Sodium 139 Potassium 3.3 L Chloride 108 H Carbon Dioxide 17.6 L Anion Gap 13 BUN 3 L Creatinine 0.43 L Estimated GFR Greater than 89 Random Glucose 112 H Calcium 7.8 L Assessment and Plan - Assessment (1) Perforation of sigmoid colon due to diverticulitis Code(s): K57.20 - Diverticulitis of large intestine with perforation and abscess without bleeding Status: Acute - Plan This is a 47-year-old female who presented to the emergency room complaining of abdominal pain, constipation, chills, nausea and vomiting. Abdominal CT shows perforated sigmoid diverticulitis Perforated sigmoid diverticulitis with free air. Clinically improving continue IV antibiotics with ciprofloxacin, Flagyl and pain management with IV morphine. General surgery has advanced to full liquid diet will continue IV hydration. Switch to p.o. medicine in the morning Ileus. Resolving Hypokalemia. Continue aggressive replacement and repeat BMP in the morning Leukocytosis secondary to above. Will monitor. Incidental findings of fibroid uterus and right ovarian cyst. Outpatient follow -up DVT prophylaxis with SCD and early ambulation Discharge Planning: dc when cleared by GS
[2017-08-22] MEDS ORDERED: Acetaminophen 325 MG Tablet PO PRN (16:46)
[2017-08-22 23:31] LABS: Magnesium 1.7 mg/dL (1.5-2.5)
[2017-08-23] MEDS: Morphine Inj 4 MG/ML Vial IV.PUSH PRN (07:02)
[2017-08-23 08:39] LABS: Baso % (Auto) 0.3 % (0.0-2.0); Eos # (Auto) 0.2 th/mm3 (0.0-0.4); Eos % (Auto) 1.8 % (0.0-4.0); Hematocrit 37.7 % (35.0-46.0); Hemoglobin 12.3 gm/dL (11.6-15.3); Lymph # (Auto) 1.7 th/mm3 (1.0-4.8); Lymph % (Auto) 16.2 % (9.0-44.0); Mean Corpuscular HGB Conc 32.8 % (32.0-36.0); Mean Corpuscular Volume 85.3 fL (80.0-100.0); Mean Platelet Volume 8.2 fL (7.0-11.0); Mono # (Auto) 0.9 th/mm3 (0.0-0.9); Mono % (Auto) 8.6 % (0.0-8.0); Neut # (Auto) 7.6 th/mm3 (1.8-7.7); Neut % (Auto) 73.1 % (16.0-70.0); Platelet Count 409 th/mm3 (150-450); Red Blood Count 4.41 mil/mm3 (4.00-5.30); Red Cell Distribution Width 14.7 % (11.6-17.2); White Blood Count 10.4 th/mm3 (4.0-11.0)
[2017-08-23 09:05] LABS: Anion Gap 14 meq/L (5-15); Blood Urea Nitrogen 5 mg/dL (7-18); Calcium 8.3 mg/dL (8.5-10.1); Carbon Dioxide 19.2 meq/L (21.0-32.0); Chloride 108 meq/L (98-107); Glomerular Filtration Rate Greater Than 89 mL/min (>89); Glucose,Random 100 mg/dL (74-106); Magnesium 2.2 mg/dL (1.5-2.5); Potassium 3.9 meq/L (3.5-5.1); Sodium 141 meq/L (136-145)
[2017-08-23] MEDS ORDERED: Morphine Inj 4 MG/ML Vial IV.PUSH PRN (10:09)
--- NOTE | 2017-08-23 10:16 | P.PN ---
Subjective Interval history: Follow-up sigmoid diverticulitis. Complains of increased pain today. She also vomited 1 yesterday. Last bowel movement yesterday. She has not passed any gas. Discussed with general surgery Physical Exam Vital signs: Vital Signs 08/22/17 20:05 08/23/17 00:00 08/23/17 08:00 Temperature 98.1 F 98.0 F 97.8 F Pulse Rate 80 82 80 Respiratory Rate 16 16 17 Blood Pressure 125/72 113/72 147/82 H Pulse Oximetry 97 97 98 Intake & Output 08/22/17 08/23/17 08/23/17 18:59 06:59 18:59 Intake Total 2500 / 2500 1580 / 1580 1000 / 1000 Balance 2500 / 2500 1580 / 1580 1000 / 1000 Intake: IV 2500 / 2500 1100 / 1100 1000 / 1000 NS + KCl 20 mEq Inj 1,000 ML @ 2000 / 2000 1000 / 1000 1000 / 1000 125 mls/hr IV.CONT .Q8H SHASHANK Rx# :[id number] Cipro 400 MG/200 ML Inj 400 mg 200 / 200 In 200 ml @ 200 mls/hr IV.SIG Q12H SHASHANK Rx#:[id number] Flagyl 500 MG Inj 100 ML @ 100 200 / 200 100 / 100 mls/hr IV.SIG Q8H SHASHANK Rx#: [id number] Oral 480 / 480 Other: # Voids 3 Date of Last Bowel Movement 08/22/17 08/22/17 # Bowel Movements 0 Narrative: GENERAL: Well-developed and well-nourished in distress due to pain SKIN: Warm and dry. CARDIOVASCULAR: Regular rate and rhythm. RESPIRATORY: No accessory muscle use. Clear to auscultation. Breath sounds equal bilaterally. GASTROINTESTINAL: Abdomen soft, with generalized diffuse tenderness normoactive bowel sounds MUSCULOSKELETAL: Extremities without clubbing, cyanosis, or edema. No obvious deformities. NEUROLOGICAL: Awake and alert. No obvious cranial nerve deficits. Motor grossly within normal limits. Normal speech. Results - Labs CBC & Chem 7: 08/23/17 07:19 08/23/17 07:19 Laboratory Results - last 24 hr 08/22/17 08/23/17 08/23/17 07:00 07:19 07:19 WBC 10.4 RBC 4.41 Hgb 12.3 Hct 37.7 MCV 85.3 MCH 28.0 MCHC 32.8 RDW 14.7 Plt Count 409 D MPV 8.2 Neut % (Auto) 73.1 H Lymph % (Auto) 16.2 [place] % (Auto) 8.6 H Eos % (Auto) 1.8 Baso % (Auto) 0.3 Neut # (Auto) 7.6 Lymph # (Auto) 1.7 [place] # (Auto) 0.9 Eos # (Auto) 0.2 Baso # (Auto) 0.0 WBC Differential . Differential Comment Auto diff final Sodium 139 141 Potassium 3.3 L 3.9 Chloride 108 H 108 H Carbon Dioxide 17.6 L 19.2 L Anion Gap 13 14 BUN 3 L 5 L Creatinine 0.43 L 0.46 L Estimated GFR Greater than 89 Greater than 89 Random Glucose 112 H 100 Calcium 7.8 L 8.3 L Magnesium 1.7 2.2 Assessment and Plan - Assessment (1) Perforation of sigmoid colon due to diverticulitis Code(s): K57.20 - Diverticulitis of large intestine with perforation and abscess without bleeding Status: Acute - Plan This is a 47-year-old female who presented to the emergency room complaining of abdominal pain, constipation, chills, nausea and vomiting. Abdominal CT shows perforated sigmoid diverticulitis Perforated sigmoid diverticulitis with free air. Complaining of increased pain today. Discussed with general surgery will repeat abdominal CT. N.p.o. and continue IV hydration, IV antibiotics with ciprofloxacin and Flagyl. We will also increase IV morphine for better control. Ileus. Could be worsening await repeat CT scan. As above Hypokalemia. Continue aggressive replacement and repeat BMP in the morning Leukocytosis secondary to above. Will monitor. Incidental findings of fibroid uterus and right ovarian cyst. Outpatient follow -up DVT prophylaxis with SCD and early ambulation Discharge Planning: Not ready for discharge with increasing abdominal pain
--- NOTE | 2017-08-23 10:43 | P.PNGS ---
Subjective Patient reports: vomiting (increased pain today, small bms) Physical Exam Vital signs: Vital Signs 08/22/17 20:05 08/23/17 00:00 08/23/17 08:00 Temperature 98.1 F 98.0 F 97.8 F Pulse Rate 80 82 80 Respiratory Rate 16 16 17 Blood Pressure 125/72 113/72 147/82 H Pulse Oximetry 97 97 98 Intake & Output 08/22/17 08/23/17 08/23/17 18:59 06:59 18:59 Intake Total 2500 / 2500 1580 / 1580 1000 / 1000 Balance 2500 / 2500 1580 / 1580 1000 / 1000 Intake: IV 2500 / 2500 1100 / 1100 1000 / 1000 NS + KCl 20 mEq Inj 1,000 ML @ 2000 / 2000 1000 / 1000 1000 / 1000 125 mls/hr IV.CONT .Q8H SHASHANK Rx# :[id number] Cipro 400 MG/200 ML Inj 400 mg 200 / 200 In 200 ml @ 200 mls/hr IV.SIG Q12H SHASHANK Rx#:[id number] Flagyl 500 MG Inj 100 ML @ 100 200 / 200 100 / 100 mls/hr IV.SIG Q8H SHASHANK Rx#: [id number] Oral 480 / 480 Other: # Voids 3 Date of Last Bowel Movement 08/22/17 08/22/17 # Bowel Movements 0 - Routine Respiratory Exam Present: CTA bilaterally - Routine Cardiovascular Exam Present: RRR, S1, S2 - Routine Abdominal Exam Present: soft (+ttp diffuse, no rebound) Assessment and Plan - Assessment (1) Diverticulitis Code(s): K57.92 - Diverticulitis of intestine, part unspecified, without perforation or abscess without bleeding Status: Acute - Plan perforated diverticulitis wbc slight decrease PLAN NPO Check CTa/p iv fluids/iv abx pain control
[2017-08-23] MEDS ORDERED: Diatrizoate Meglum/Diatrizoate Sod Liq 9 ML UDC PO ONE (10:45)
[2017-08-23] MEDS: Ciprofloxacin 400 MG/200 ML 400 MG/200 ML PIGGYBACK IV.SIG SCH ×2 (10:46→17:31)
--- NOTE | 2017-08-23 13:34 | CT ---
EXAM DATE: 08/23/2017 1:27 PM EDT AGE/SEX: 47 years / Female INDICATIONS: Perforated sigmoid diverticulitis with increasing pain. CLINICAL DATA: This is the patient's subsequent encounter. Patient reports that signs and symptoms h ave been present for 4 - 6 days and indicates a pain score of 6/10. MEDICAL/SURGICAL HISTORY: Diverticulitis. Tubal ligation. ORAL CONTRAST: No oral contrast ingested. RADIATION DOSE: 7.23 CTDI (mGy) COMPARISON: [facility], CT ABDOMEN & PELVIS W CONTRAST, 08/20/2017. . TECHNIQUE: Multiple contiguous axial images were obtained through the abdomen and pelvis following b olus infusion of 70 ml Omnipaque 350 (iohexol) nonionic water-soluble contrast as a single exam dos e. No oral contrast ingested. Using automated exposure control and adjustment of the mA and/or kV ac cording to patient size, radiation dose was kept as low as reasonably achievable to obtain optimal di agnostic quality images. DICOM format image data is available electronically for review and comparis on. FINDINGS: The lower lungs are clear. There is trace ascites with minimal free air. There is mild fatty replacement to the liver. There is gaseous distention of the small bowel. Colon is fluid-filled. Multiple diverticuli are prese nt in the sigmoid colon inflammatory changes in the mesentery. There is no contained and/or ill-defin ed abscess evident. Minimal likely fluid is seen in the pelvis. Cystic adnexal mass is again seen on the left. CONCLUSION: 1. Slight increase in the amount of free air 2. Increasing small bowel dilatation with increasing edema and induration in the mesentery left lowe r quadrant. 3. There is no defined drainable abscess. Electronically signed by: Faisal Adan MD 08/23/2017 1:33 PM EDT
[2017-08-23] MEDS: Ketorolac Inj 30 MG/ML (IVP) Vial IV.PUSH SCH (17:30)
[2017-08-23] MEDS: Pantoprazole Inj 40 MG Vial IV.PUSH SCH (17:32)
[2017-08-23] MEDS ORDERED: METOCLOPRAMIDE IV.SIG SCH (18:00)
[2017-08-23] MEDS ORDERED: SODIUM CHLOR 0.9% IV.SIG SCH (18:00)
[2017-08-24] MEDS: Ketorolac Inj 30 MG/ML (IVP) Vial IV.PUSH SCH ×5 (01:30→23:02)
[2017-08-24] MEDS ORDERED: Metoprolol Tartrate 25 MG Tablet PO SCH (04:00)
[2017-08-24] MEDS ORDERED: Chlorhexidine Gluconate 2% 1 Pack (2 Cloths) TOPICAL SCH (04:00)
[2017-08-24] MEDS ORDERED: Sodium Chlor 0.9% Inj 500 ML IV.SIG SCH (04:00)
[2017-08-24 06:53] LABS: Baso % (Auto) 0.3 % (0.0-2.0); Eos # (Auto) 0.1 th/mm3 (0.0-0.4); Eos % (Auto) 0.6 % (0.0-4.0); Hematocrit 36.6 % (35.0-46.0); Hemoglobin 12.1 gm/dL (11.6-15.3); Lymph # (Auto) 1.4 th/mm3 (1.0-4.8); Lymph % (Auto) 9.5 % (9.0-44.0); Mean Corpuscular HGB Conc 32.9 % (32.0-36.0); Mean Corpuscular Volume 85.2 fL (80.0-100.0); Mean Platelet Volume 7.7 fL (7.0-11.0); Mono # (Auto) 1.2 th/mm3 (0.0-0.9); Mono % (Auto) 8.5 % (0.0-8.0); Neut # (Auto) 11.5 th/mm3 (1.8-7.7); Neut % (Auto) 81.1 % (16.0-70.0); Platelet Count 505 th/mm3 (150-450); Red Cell Distribution Width 14.6 % (11.6-17.2); White Blood Count 14.2 th/mm3 (4.0-11.0)
[2017-08-24 06:58] LABS: Activated Partial Thrombo Time 27.8 sec (24.3-30.1); INR 1.2 Ratio; Prothrombin Time 12.6 sec (9.8-11.6)
[2017-08-24 07:15] LABS: Anion Gap 14 meq/L (5-15); Blood Urea Nitrogen 7 mg/dL (7-18); Carbon Dioxide 20.5 meq/L (21.0-32.0); Chloride 106 meq/L (98-107); Glomerular Filtration Rate Greater Than 89 mL/min (>89); Glucose,Random 115 mg/dL (74-106); Magnesium 2.2 mg/dL (1.5-2.5); Potassium 3.6 meq/L (3.5-5.1); Sodium 140 meq/L (136-145)
[2017-08-24] MEDS: Ciprofloxacin 400 MG/200 ML 400 MG/200 ML PIGGYBACK IV.SIG SCH ×2 (07:45→18:17)
--- NOTE | 2017-08-24 11:03 | P.PNGS ---
Subjective Patient reports: feels better (much better after ng place, no fevers, diarrhea, ng 1400cc, wbc 14) Physical Exam Vital signs: Vital Signs 08/23/17 11:59 08/23/17 16:00 08/23/17 20:00 Temperature 98.2 F 97.8 F Pulse Rate 90 111 H Respiratory Rate 18 19 Blood Pressure 123/73 117/79 Pulse Oximetry 99 98 95 08/23/17 20:47 08/24/17 00:00 08/24/17 04:17 Temperature 98.2 F 98.1 F 98.2 F Pulse Rate 94 H 102 H 96 H Respiratory Rate 17 18 17 Blood Pressure 117/70 121/64 111/71 Pulse Oximetry 95 96 96 08/24/17 08:00 Temperature 98.2 F Pulse Rate 97 H Respiratory Rate 18 Blood Pressure 115/66 Pulse Oximetry 95 Intake & Output 08/23/17 08/24/17 08/24/17 18:59 06:59 18:59 Intake Total 2600 / 2600 1100 / 1100 200 / 200 Output Total 1400 / 1400 Balance 2600 / 2600 -300 / -300 200 / 200 Weight 67.2 kg Intake: IV 2600 / 2600 1100 / 1100 200 / 200 NS + KCl 20 mEq Inj 1,000 ML @ 2000 / 2000 1000 / 1000 125 mls/hr IV.CONT .Q8H SH[facility]ANK Rx# :[id number] Cipro 400 MG/200 ML Inj 400 mg 400 / 400 200 / 200 In 200 ml @ 200 mls/hr IV.SIG Q12H SH[facility]ANK Rx#:[id number] Flagyl 500 MG Inj 100 ML @ 100 200 / 200 100 / 100 mls/hr IV.SIG Q8H SHASHANK Rx#: [id number] Oral 0 / 0 Output: Gastric Drainage 1400 / 1400 Left Nare Nasogastric Tube 1400 / 1400 Other: # Voids 4 2 Date of Last Bowel Movement 08/22/17 08/24/17 # Bowel Movements 0 - Routine Respiratory Exam Present: CTA bilaterally - Routine Cardiovascular Exam Present: RRR - Routine Abdominal Exam Present: soft (mild ttp B lower quadrants, no rebound) Assessment and Plan - Assessment (1) Diverticulitis Code(s): K57.92 - Diverticulitis of intestine, part unspecified, without perforation or abscess without bleeding Status: Acute - Plan perforated diverticulitis wbc 14, continue to monitor PLAN NPO, ok for small ice chips NG sxn iv fluids/iv abx pain control
--- NOTE | 2017-08-24 11:06 | P.PN ---
Subjective Interval history: Follow-up abdominal pain. States she is feeling much better after NGT insertion which put out 1400 mL overnight. This morning minimal gastric output of 50 cc for the last 5 hours. Physical Exam Vital signs: Vital Signs 08/23/17 11:59 08/23/17 16:00 08/23/17 20:00 Temperature 98.2 F 97.8 F Pulse Rate 90 111 H Respiratory Rate 18 19 Blood Pressure 123/73 117/79 Pulse Oximetry 99 98 95 08/23/17 20:47 08/24/17 00:00 08/24/17 04:17 Temperature 98.2 F 98.1 F 98.2 F Pulse Rate 94 H 102 H 96 H Respiratory Rate 17 18 17 Blood Pressure 117/70 121/64 111/71 Pulse Oximetry 95 96 96 08/24/17 08:00 Temperature 98.2 F Pulse Rate 97 H Respiratory Rate 18 Blood Pressure 115/66 Pulse Oximetry 95 Intake & Output 08/23/17 08/24/17 08/24/17 18:59 06:59 18:59 Intake Total 2600 / 2600 1100 / 1100 200 / 200 Output Total 1400 / 1400 Balance 2600 / 2600 -300 / -300 200 / 200 Weight 67.2 kg Intake: IV 2600 / 2600 1100 / 1100 200 / 200 NS + KCl 20 mEq Inj 1,000 ML @ 2000 / 2000 1000 / 1000 125 mls/hr IV.CONT .Q8H [facility] Rx# :[id number] Cipro 400 MG/200 ML Inj 400 mg 400 / 400 200 / 200 In 200 ml @ 200 mls/hr IV.SIG Q12H [facility] Rx#:[id number] Flagyl 500 MG Inj 100 ML @ 100 200 / 200 100 / 100 mls/hr IV.SIG Q8H [facility] Rx#: [id number] Oral 0 / 0 Output: Gastric Drainage 1400 / 1400 Left Nare Nasogastric Tube 1400 / 1400 Other: # Voids 4 2 Date of Last Bowel Movement 08/22/17 08/24/17 # Bowel Movements 0 Narrative: GENERAL: Well-developed and well-nourished in no distress. NGT in place SKIN: Warm and dry. CARDIOVASCULAR: Regular rate and rhythm. RESPIRATORY: No accessory muscle use. Clear to auscultation. Breath sounds equal bilaterally. GASTROINTESTINAL: Abdomen soft, with improved tenderness normoactive bowel sounds MUSCULOSKELETAL: Extremities without clubbing, cyanosis, or edema. No obvious deformities. NEUROLOGICAL: Awake and alert. No obvious cranial nerve deficits. Motor grossly within normal limits. Normal speech. Results - Labs CBC & Chem 7: 08/24/17 06:28 08/24/17 06:28 Laboratory Results - last 24 hr 08/24/17 08/24/17 08/24/17 06:28 06:28 06:28 WBC 14.2 H RBC 4.30 Hgb 12.1 Hct 36.6 MCV 85.2 MCH 28.0 MCHC 32.9 RDW 14.6 Plt Count 505 H MPV 7.7 Neut % (Auto) 81.1 H Lymph % (Auto) 9.5 [place] % (Auto) 8.5 H Eos % (Auto) 0.6 Baso % (Auto) 0.3 Neut # (Auto) 11.5 H Lymph # (Auto) 1.4 [place] # (Auto) 1.2 H Eos # (Auto) 0.1 Baso # (Auto) 0.0 WBC Differential . Differential Comment Auto diff final PT INR APTT Sodium 140 Potassium 3.6 Chloride 106 Carbon Dioxide 20.5 L Anion Gap 14 BUN 7 Creatinine 0.51 Estimated GFR Greater than 89 Random Glucose 115 H Calcium 8.0 L Magnesium 2.2 Blood Type A Positive Blood Type Recheck Required Antibody Screen Negative 08/24/17 06:28 WBC RBC Hgb Hct MCV MCH MCHC RDW Plt Count MPV Neut % (Auto) Lymph % (Auto) [place] % (Auto) Eos % (Auto) Baso % (Auto) Neut # (Auto) Lymph # (Auto) [place] # (Auto) Eos # (Auto) Baso # (Auto) WBC Differential Differential Comment PT 12.6 H INR 1.2 APTT 27.8 Sodium Potassium Chloride Carbon Dioxide Anion Gap BUN Creatinine Estimated GFR Random Glucose Calcium Magnesium Blood Type Blood Type Recheck Antibody Screen - Imaging Impressions Abdomen/Pelvis CT 08/23/17 10:11 CONCLUSION: 1. Slight increase in the amount of free air 2. Increasing small bowel dilatation with increasing edema and induration in the mesentery left lower quadrant. 3. There is no defined drainable abscess. Assessment and Plan - Assessment (1) Perforation of sigmoid colon due to diverticulitis Code(s): K57.20 - Diverticulitis of large intestine with perforation and abscess without bleeding Status: Acute - Plan This is a 47-year-old female who presented to the emergency room complaining of abdominal pain, constipation, chills, nausea and vomiting. Abdominal CT shows perforated sigmoid diverticulitis Perforated sigmoid diverticulitis with free air. Clinically improved today. Discussed with general surgery continue n.p.o., NG tube to wall suction, IV hydration, IV antibiotics with ciprofloxacin and Flagyl. Continue IV Toradol and morphine. Ileus. Likely etiology for worsening pain yesterday improved status post NGT insertion. Management as above. Hypokalemia. Continue aggressive replacement and repeat BMP in the morning Leukocytosis secondary to above. Worse likely stress reaction. Will monitor. Incidental findings of fibroid uterus and right ovarian cyst. Outpatient follow -up DVT prophylaxis with SCD and early ambulation Discharge Planning: Not ready for discharge with increasing abdominal pain
[2017-08-24] MEDS: Pantoprazole Inj 40 MG Vial IV.PUSH SCH (17:05)
[2017-08-25] MEDS: Ketorolac Inj 30 MG/ML (IVP) Vial IV.PUSH SCH ×2 (05:46→12:27)
[2017-08-25] MEDS: Ciprofloxacin 400 MG/200 ML 400 MG/200 ML PIGGYBACK IV.SIG SCH (05:47)
--- NOTE | 2017-08-25 07:44 | XR ---
EXAM DATE: 08/25/2017 7:38 AM EDT AGE/SEX: 47 years / Female INDICATIONS: Evaluate NG tube placement CLINICAL DATA: This is the patient's subsequent encounter. Patient reports that signs and symptoms h ave been present for 4 - 6 days and indicates a pain score of 0/10. MEDICAL/SURGICAL HISTORY: None. None. COMPARISON: No prior exams available for comparison. FINDINGS: 2 frontal views of the chest demonstrate the lungs to be symmetrically aerated without evidence of ma ss, infiltrate or effusion. The cardiomediastinal contours are unremarkable. Osseous structures are intact. Tip of the NG tube within the region of the body of the stomach. CONCLUSION: 1. No acute cardiopulmonary disease. 2. Tip of the NG tube in the body of the stomach. Electronically signed by: Sarath Bowden MD 08/25/2017 7:43 AM EDT
[2017-08-25 08:25] LABS: Baso # (Auto) 0.1 th/mm3 (0.0-0.2); Baso % (Auto) 0.6 % (0.0-2.0); Eos # (Auto) 0.2 th/mm3 (0.0-0.4); Eos % (Auto) 1.5 % (0.0-4.0); Hematocrit 32.5 % (35.0-46.0); Hemoglobin 10.7 gm/dL (11.6-15.3); Lymph # (Auto) 1.4 th/mm3 (1.0-4.8); Lymph % (Auto) 12.7 % (9.0-44.0); Mono % (Auto) 9.3 % (0.0-8.0); Neut # (Auto) 8.4 th/mm3 (1.8-7.7); Neut % (Auto) 75.9 % (16.0-70.0); Platelet Count 505 th/mm3 (150-450); Red Blood Count 3.82 mil/mm3 (4.00-5.30)
[2017-08-25 08:54] LABS: Anion Gap 11 meq/L (5-15); Blood Urea Nitrogen 9 mg/dL (7-18); Calcium 7.8 mg/dL (8.5-10.1); Carbon Dioxide 22.4 meq/L (21.0-32.0); Chloride 111 meq/L (98-107); Glomerular Filtration Rate Greater Than 89 mL/min (>89); Glucose,Random 77 mg/dL (74-106); Magnesium 2.4 mg/dL (1.5-2.5); Potassium 3.6 meq/L (3.5-5.1); Sodium 144 meq/L (136-145)
--- NOTE | 2017-08-25 09:57 | P.PNGS ---
<Ángela Lainez - Last Filed: 08/25/17 09:55> Subjective Patient reports: no new complaints Interval history: Wants NGT out Thirsty Physical Exam Vital signs: Vital Signs 08/24/17 12:00 08/24/17 13:19 08/24/17 16:00 Temperature 97.7 F 98.8 F Pulse Rate 101 H 108 H Respiratory Rate 18 17 18 Blood Pressure 107/68 120/77 Pulse Oximetry 98 97 08/24/17 17:35 08/24/17 20:00 08/25/17 00:00 Temperature 97.8 F 98.2 F Pulse Rate 100 H 93 H Respiratory Rate 16 18 18 Blood Pressure 129/79 129/80 Pulse Oximetry 96 96 08/25/17 04:00 Temperature 98.1 F Pulse Rate 86 Respiratory Rate 18 Blood Pressure 125/65 Pulse Oximetry 97 Intake & Output 08/24/17 08/25/17 08/25/17 18:59 06:59 18:59 Intake Total 1520 / 1520 300 / 300 Output Total 90 / 90 Balance 1430 / 1430 300 / 300 Weight 63.5 kg Intake: IV 1400 / 1400 300 / 300 NS + KCl 20 mEq Inj 1,000 ML @ 1000 / 1000 125 mls/hr IV.CONT .Q8H [facility] Rx# :[id number] Cipro 400 MG/200 ML Inj 400 mg 200 / 200 200 / 200 In 200 ml @ 200 mls/hr IV.SIG Q12H [facility] Rx#:[id number] Flagyl 500 MG Inj 100 ML @ 100 200 / 200 100 / 100 mls/hr IV.SIG Q8H [facility] Rx#: [id number] Oral 120 / 120 Output: Gastric Drainage 90 / 90 Right Nare 90 / 90 Other: # Voids 2 Date of Last Bowel Movement 08/24/17 08/24/17 # Bowel Movements 3 Narrative: Alert and awake Cardio: RRR Resp: CTAB Abd: soft non tender Assessment and Plan - Assessment (1) Diverticulitis Code(s): K57.92 - Diverticulitis of intestine, part unspecified, without perforation or abscess without bleeding Status: Acute - Plan 47 year old female with perforated diverticulitis -Afebrile overnight; WBC now 11L -Exam improved today -Clamp NGT -Start clears -Continue IVF/antibiotics -Continue non op treatment <Augustine Hahn S - Last Filed: 08/27/17 22:27> Physical Exam Vital signs: Vital Signs 08/27/17 00:00 08/27/17 04:00 08/27/17 08:07 Temperature 98.0 F 98.4 F 98.4 F Pulse Rate 66 86 68 Respiratory Rate 19 19 16 Blood Pressure 134/81 118/74 144/63 H Pulse Oximetry 99 95 96 08/27/17 11:32 08/27/17 17:07 Temperature 97.4 F L 98.2 F Pulse Rate 80 62 Respiratory Rate 16 16 Blood Pressure 128/76 117/81 Pulse Oximetry 99 Intake & Output 08/27/17 08/27/17 08/28/17 06:59 18:59 06:59 Intake Total 982 / 982 1351 / 1351 Balance 982 / 982 1351 / 1351 Weight 63.5 kg Intake: IV 482 / 482 1351 / 1351 NS + KCl 20 mEq Inj 1,000 ML @ 482 / 482 1351 / 1351 70 mls/hr IV.CONT .[id number] [facility] Rx#:[id number] Oral 500 / 500 Other: # Voids 2 Date of Last Bowel Movement 08/25/17 08/27/17 # Bowel Movements 1 Assessment and Plan - Assessment (1) Diverticulitis Code(s): K57.92 - Diverticulitis of intestine, part unspecified, without perforation or abscess without bleeding Status: Acute - Plan pt doing better, no fevers, tolerating clears, abdominal exams, clamp ng possible dc tube tomorrow Attestation Attestation: The exam, history, and the medical decision-making described in the above note were completed with the assistance of the mid-level provider. I reviewed and agree with the findings presented. I attest that I had a [id number] encounter with the patient on the same day, and personally performed and documented my assessment and findings in the medical record.
--- NOTE | 2017-08-25 13:15 | P.PN ---
Subjective Interval history: Follow-up ileus and perforated sigmoid diverticulitis. She is doing much better denies abdominal pain. No nausea or vomiting. NG output only 90 mL the past 24 hours. She is passing gas. Physical Exam Vital signs: Vital Signs 08/24/17 13:19 08/24/17 16:00 08/24/17 17:35 Temperature 98.8 F Pulse Rate 108 H Respiratory Rate 17 18 16 Blood Pressure 120/77 Pulse Oximetry 97 08/24/17 20:00 08/25/17 00:00 08/25/17 04:00 Temperature 97.8 F 98.2 F 98.1 F Pulse Rate 100 H 93 H 86 Respiratory Rate 18 18 18 Blood Pressure 129/79 129/80 125/65 Pulse Oximetry 96 96 97 08/25/17 08:00 Temperature 97.8 F Pulse Rate 83 Respiratory Rate 18 Blood Pressure 146/66 H Pulse Oximetry 96 Intake & Output 08/24/17 08/25/17 08/25/17 18:59 06:59 18:59 Intake Total 1520 / 1520 300 / 300 Output Total 90 / 90 Balance 1430 / 1430 300 / 300 Weight 63.5 kg Intake: IV 1400 / 1400 300 / 300 NS + KCl 20 mEq Inj 1,000 ML @ 1000 / 1000 125 mls/hr IV.CONT .Q8H [facility] Rx# :[id number] Cipro 400 MG/200 ML Inj 400 mg 200 / 200 200 / 200 In 200 ml @ 200 mls/hr IV.SIG Q12H [facility] Rx#:[id number] Flagyl 500 MG Inj 100 ML @ 100 200 / 200 100 / 100 mls/hr IV.SIG Q8H [facility] Rx#: [id number] Oral 120 / 120 Output: Gastric Drainage 90 / 90 Right Nare 90 / 90 Other: # Voids 2 Date of Last Bowel Movement 08/24/17 08/24/17 08/25/17 # Bowel Movements 3 Narrative: Alert and awake Cardio: RRR Resp: CTAB Abd: soft non tender Extremities no edema no cyanosis Oriented 3 nonfocal Results - Labs CBC & Chem 7: 08/25/17 06:47 08/25/17 06:47 Laboratory Results - last 24 hr 08/25/17 08/25/17 06:47 06:47 WBC 11.0 RBC 3.82 L Hgb 10.7 L Hct 32.5 L MCV 85.0 MCH 28.0 MCHC 33.0 RDW 15.0 Plt Count 505 H MPV 8.0 Neut % (Auto) 75.9 H Lymph % (Auto) 12.7 [place] % (Auto) 9.3 H Eos % (Auto) 1.5 Baso % (Auto) 0.6 Neut # (Auto) 8.4 H Lymph # (Auto) 1.4 [place] # (Auto) 1.0 H Eos # (Auto) 0.2 Baso # (Auto) 0.1 WBC Differential . Differential Comment Auto diff final Sodium 144 Potassium 3.6 Chloride 111 H Carbon Dioxide 22.4 Anion Gap 11 BUN 9 Creatinine 0.39 L Estimated GFR Greater than 89 Random Glucose 77 Calcium 7.8 L Magnesium 2.4 - Imaging Impressions Chest X-Ray 08/25/17 00:00 CONCLUSION: 1. No acute cardiopulmonary disease. 2. Tip of the NG tube in the body of the stomach. Assessment and Plan - Assessment (1) Perforation of sigmoid colon due to diverticulitis Code(s): K57.20 - Diverticulitis of large intestine with perforation and abscess without bleeding Status: Acute - Plan This is a 47-year-old female who presented to the emergency room complaining of abdominal pain, constipation, chills, nausea and vomiting. Abdominal CT shows perforated sigmoid diverticulitis Perforated sigmoid diverticulitis with free air. Clinically much improved today. Diet changed to liquid advance per general surgery, continue IV hydration and pain management. Switch to p.o. antibiotics if tolerating p.o. Ileus. Resolving. Management as above. Hypokalemia. Continue aggressive replacement and repeat BMP in the morning Leukocytosis secondary to above. Improved. Will monitor. Incidental findings of fibroid uterus and right ovarian cyst. Outpatient follow -up DVT prophylaxis with SCD and early ambulation Discharge Planning: Discharge when cleared by general surgery
[2017-08-25] MEDS ORDERED: Ketorolac Inj 30 MG/ML (IVP) Vial IV.PUSH PRN (18:00)
[2017-08-25] MEDS: metroNIDAZOLE 500 MG Tablet PO SCH ×2 (18:01→23:37)
[2017-08-25] MEDS: Ciprofloxacin 500 MG Tablet PO SCH (21:54)
[2017-08-26] MEDS: metroNIDAZOLE 500 MG Tablet PO SCH ×4 (06:17→17:00)
[2017-08-26] MEDS: Ciprofloxacin 500 MG Tablet PO SCH ×2 (08:34→21:38)
--- NOTE | 2017-08-26 11:38 | P.PN ---
Subjective Interval history: Follow-up diverticulitis and ileus. States she is doing okay denies abdominal pain tolerating meals. She had a bowel movement. She wants to go home Physical Exam Vital signs: Vital Signs 08/25/17 12:00 08/25/17 16:00 08/25/17 20:00 Temperature 98.4 F 97.8 F 98.4 F Pulse Rate 88 84 83 Respiratory Rate 18 18 18 Blood Pressure 123/77 134/66 123/73 Pulse Oximetry 96 99 96 08/26/17 00:00 08/26/17 08:00 Temperature 98.5 F 97.8 F Pulse Rate 87 76 Respiratory Rate 18 18 Blood Pressure 128/79 123/67 Pulse Oximetry 96 97 Intake & Output 08/25/17 08/26/17 08/26/17 18:59 06:59 18:59 Intake Total 1000 / 1000 Balance 1000 / 1000 Weight 63.5 kg Intake: IV 1000 / 1000 NS + KCl 20 mEq Inj 1,000 ML @ 1000 / 1000 70 mls/hr IV.CONT .[id number] [facility] Rx#:[id number] Other: # Voids 3 Date of Last Bowel Movement 08/25/17 08/25/17 # Bowel Movements 1 Narrative: Alert and awake Cardio: RRR Resp: CTAB Abd: soft non tender Extremities no edema no cyanosis Oriented 3 nonfocal Results - Labs CBC & Chem 7: 08/25/17 06:47 08/25/17 06:47 Assessment and Plan - Assessment (1) Perforation of sigmoid colon due to diverticulitis Code(s): K57.20 - Diverticulitis of large intestine with perforation and abscess without bleeding Status: Acute - Plan This is a 47-year-old female who presented to the emergency room complaining of abdominal pain, constipation, chills, nausea and vomiting. Abdominal CT shows perforated sigmoid diverticulitis Perforated sigmoid diverticulitis with free air. Clinically stable continue liquid advance per general surgery, continue IV hydration and pain management. Switched to p.o. antibiotics Ileus. Resolving. Management as above. Hypokalemia. Continue aggressive replacement and r monitor BMP Leukocytosis secondary to above. Improved. Will monitor. Incidental findings of fibroid uterus and right ovarian cyst. Outpatient follow -up DVT prophylaxis with SCD and early ambulation Discharge Planning: Discharge when cleared by general surgery
--- NOTE | 2017-08-26 21:55 | P.PNGS ---
Subjective Patient reports: feels better (doing better, no nausea, tolerating liquids, +bms ) Physical Exam Vital signs: Vital Signs 08/26/17 00:00 08/26/17 08:00 08/26/17 12:28 Temperature 98.5 F 97.8 F 97.5 F L Pulse Rate 87 76 73 Respiratory Rate 18 18 16 Blood Pressure 128/79 123/67 130/78 Pulse Oximetry 96 97 98 08/26/17 16:06 08/26/17 20:00 Temperature 97.5 F L 98.3 F Pulse Rate 77 75 Respiratory Rate 17 20 Blood Pressure 146/70 H 147/84 H Pulse Oximetry 97 99 Intake & Output 08/26/17 08/26/17 08/27/17 06:59 18:59 06:59 Intake Total 1000 / 1000 818 / 818 Balance 1000 / 1000 818 / 818 Weight 63.5 kg Intake: IV 1000 / 1000 818 / 818 NS + KCl 20 mEq Inj 1,000 ML @ 1000 / 1000 518 / 518 70 mls/hr IV.CONT .[id number] [facility] Rx#:[id number] Other: # Voids 3 4 Date of Last Bowel Movement 08/25/17 # Bowel Movements 1 3 - Routine Respiratory Exam Present: CTA bilaterally - Routine Cardiovascular Exam Present: RRR, S1, S2 - Routine Abdominal Exam Present: soft (mild ttp lower quadrants) Assessment and Plan - Assessment (1) Diverticulitis Code(s): K57.92 - Diverticulitis of intestine, part unspecified, without perforation or abscess without bleeding Status: Acute - Plan perforated diverticulitis wbc improving, continue to monitor, ng pulled out by pt last night PLAN advance to fulls iv fluids/iv abx pain control
[2017-08-27] MEDS: metroNIDAZOLE 500 MG Tablet PO SCH ×4 (01:42→17:04)
[2017-08-27] MEDS: Ciprofloxacin 500 MG Tablet PO SCH (08:09)
--- NOTE | 2017-08-27 10:51 | P.PNGS ---
<Ángela Lainez - Last Filed: 08/27/17 10:49> Subjective Interval history: Eating breakfast No issues Physical Exam Vital signs: Vital Signs 08/26/17 12:28 08/26/17 16:06 08/26/17 20:00 Temperature 97.5 F L 97.5 F L 98.3 F Pulse Rate 73 77 75 Respiratory Rate 16 17 20 Blood Pressure 130/78 146/70 H 147/84 H Pulse Oximetry 98 97 99 08/27/17 00:00 08/27/17 04:00 08/27/17 08:07 Temperature 98.0 F 98.4 F 98.4 F Pulse Rate 66 86 68 Respiratory Rate 19 19 16 Blood Pressure 134/81 118/74 144/63 H Pulse Oximetry 99 95 96 Intake & Output 08/26/17 08/27/17 08/27/17 18:59 06:59 18:59 Intake Total 818 / 818 982 / 982 Balance 818 / 818 982 / 982 Weight 63.5 kg Intake: IV 818 / 818 482 / 482 NS + KCl 20 mEq Inj 1,000 ML @ 518 / 518 482 / 482 70 mls/hr IV.CONT .[id number] [facility] Rx#:[id number] Oral 500 / 500 Other: # Voids 4 2 Date of Last Bowel Movement 08/25/17 08/25/17 08/27/17 # Bowel Movements 3 Narrative: Alert and awake Cardio: RRR Resp: CTAB Abd: soft non tender Extremities no edema Assessment and Plan - Assessment (1) Diverticulitis Code(s): K57.92 - Diverticulitis of intestine, part unspecified, without perforation or abscess without bleeding Status: Acute - Plan 47 year old female with perforated diverticulitis -Afebrile overnight -Abdominal exam remains benign -Advance to soft diet -Continue PO antibiotics -Continue non op treatment -Potentially home today vs tomorrow pending how diet goes <Augustine Hahn - Last Filed: 09/11/17 07:08> Assessment and Plan - Assessment (1) Diverticulitis Code(s): K57.92 - Diverticulitis of intestine, part unspecified, without perforation or abscess without bleeding Status: Acute - Plan abdominal pain better no fevers continue exams abx c/w non op mgnt - Attending Attestation The exam, history, and the medical decision-making described in the above note were completed with the assistance of the mid-level provider. I reviewed and agree with the findings presented. I attest that I had a [id number] encounter with the patient on the same day, and personally performed and documented my assessment and findings in the medical record.
--- NOTE | 2017-08-27 12:59 | P.DS ---
Date of admission: 08/20/17 17:04 Primary care physician: No Primary Care Physician Brief History from admission: This is a 47-year-old female with no significant past medical history. She presented to the emergency room complaining of constant generalized abdominal pain which started 4 days prior to admission. She thought it was related to gas and constipation and took some [id number] medications to no relief. On the day of admission, she developed chills, nausea and vomiting. Denies UTI symptoms. Abdominal CT shows perforated sigmoid diverticulitis with free air and was then advice admission. At this time, patient feels better especially with pain. She feels her abdomen is firm but denies distention. She has not passed gas or had a bowel movement. All other systems reviewed negative DS: Diagnosis - Discharge Diagnosis (1) Perforation of sigmoid colon due to diverticulitis Status: Acute DS: Medications - Discharge Medications Prescriptions: ciprofloxacin HCl 500 mg PO Q12HR #16 tab metronidazole 500 mg PO Q6HR #32 tab DS: Summary Hospital Course: This is a 47-year-old female who presented to the emergency room complaining of abdominal pain, constipation, chills, nausea and vomiting. Abdominal CT shows perforated sigmoid diverticulitis Perforated sigmoid diverticulitis with free air. Clinically improved s/p IV hydration and pain management. Switched to p.o. Cipro and Flagyl Ileus. Resolved. Management as above. Hypokalemia. Resolved Leukocytosis secondary to above. Improved. Will monitor. Incidental findings of fibroid uterus and right ovarian cyst. Outpatient follow -up DVT prophylaxis with SCD and early ambulation - Time Spent with Patient Total time spent providing and/or coordinating discharge services: - Quality: VTE Deep Vein Thrombosis/Pulmonary Embolism Present on Admission: No Exam Vital signs: Vital Signs 08/26/17 16:06 08/26/17 20:00 08/27/17 00:00 Temperature 97.5 F L 98.3 F 98.0 F Pulse Rate 77 75 66 Respiratory Rate 17 20 19 Blood Pressure 146/70 H 147/84 H 134/81 Pulse Oximetry 97 99 99 08/27/17 04:00 08/27/17 08:07 08/27/17 11:32 Temperature 98.4 F 98.4 F 97.4 F L Pulse Rate 86 68 80 Respiratory Rate 19 16 16 Blood Pressure 118/74 144/63 H 128/76 Pulse Oximetry 95 96 99 Intake & Output 08/26/17 08/27/17 08/27/17 18:59 06:59 18:59 Intake Total 818 / 818 982 / 982 1351 / 1351 Balance 818 / 818 982 / 982 1351 / 1351 Weight 63.5 kg Intake: IV 818 / 818 482 / 482 1351 / 1351 NS + KCl 20 mEq Inj 1,000 ML @ 518 / 518 482 / 482 1351 / 1351 70 mls/hr IV.CONT .[id number] [facility] Rx#:[id number] Oral 500 / 500 Other: # Voids 4 2 Date of Last Bowel Movement 08/25/17 08/25/17 08/27/17 # Bowel Movements 3 1 Narrative: Alert and awake Cardio: RRR Resp: CTAB Abd: soft non tender Extremities no edema no cyanosis Oriented 3 nonfocal Results Procedures completed during hospitalization: none - Impressions ITS Impressions Abdomen/Pelvis CT 08/23/17 10:11 CONCLUSION: 1. Slight increase in the amount of free air 2. Increasing small bowel dilatation with increasing edema and induration in the mesentery left lower quadrant. 3. There is no defined drainable abscess. Chest X-Ray 08/25/17 00:00 CONCLUSION: 1. No acute cardiopulmonary disease. 2. Tip of the NG tube in the body of the stomach. Discharge Plan - Discharge Disposition Patient Disposition: Discharge Home - Discharge Condition Condition: Stable - Discharge Order Discharge Orders: Discharge Order (Routine); Ordered 08/27/17 Ordered By: Arnie Madrdi - Physicians Team Primary Care Provider: Primary Care Shamika Mcintyre Attending Provider: Arnie Madrid Other Providers: Augustine Hahn MD ; Surgeons,[facility]
[2017-08-27] MEDS ORDERED: Lactobacillus Acidophilus/L. Spores Tablet PO SCH (18:00)
== END 2017-08-27 19:05 | disposition home or self-care (01) ==
LOC: PHED 14:34 → PHEDA 17:04 → N06 19:43
PROVIDERS: ADMIT Internal Medicine; ATTEND Internal Medicine